=== PATIENT | male | born 1970 | race Caucasian/White ===

== ENCOUNTER 2016-07-30 08:38 | Emergency (ER) | payer OTHER ==
[~2016-07-30] VITALS: Ht 193 cm; Wt 181.4 kg
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
[2016-07-30] MEDS ORDERED: LISINOPRIL30 M1 PO (10:04)
[2016-07-30] MEDS ORDERED: AMLODIPINE BESY10 M1 PO (10:04)
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
[2016-07-30] MEDS ORDERED: ULTRAM50 M1 PO ×2 (10:47→11:14)
[2016-07-30] MEDS ORDERED: BACLOFEN10 M1 PO ×2 (10:47→11:14)
== END 2016-07-30 11:20 ==
LOC: ERH 08:38
DX: F07.81 Postconcussional syndrome (principal); S80.01XA Contusion of right knee, initial encounter; M25.60 Stiffness of unspecified joint, not elsewhere classified; V49.40XA Driver injured in collision with unspecified motor vehicles in traffic accident, initial encounter; Y92.9 Unspecified place or not applicable
CPT/HCPCS: 73562-RT; 73610-RT